=== PATIENT | male | born 1970 | race Caucasian/White ===

== ENCOUNTER 2018-05-29 19:31 | Emergency (ER) | payer OTHER ==
[~2018-05-29] VITALS: Ht 172.7 cm; Wt 77.1 kg
[~2018-05-29 19:31] MED LIST: PREDNISONE 20MG20 MG PO; PREDNISONE10 M2 PO
[2018-05-29] MEDS ORDERED: COZAAR50 M1 PO (20:22)
--- NOTE | 2018-05-29 20:22 | ED GENERAL ADULT ---
History of Present Illness General Chief Complaint: General Adult Stated Complaint: HIGH BLOOD PRESSURE Source: patient Exam Limitations: no limitations Vital Signs & Intake/Output Vital Signs & Intake/Output Vital Signs Date Time Temp Pulse Resp B/P B/P Pulse O2 O2 Flow FiO2 Mean Ox Delivery Rate 05/29 2058 69 18 143/108 95 Room Air 05/29 2049 Room Air 05/29 1933 97.6 69 18 159/87 96 Room Air Allergies Coded Allergies: NO KNOWN ALLERGIES (07/26/15) Reconcile Medications Losartan Potassium (Cozaar) 50 MG TABLET 1 TAB PO DAILY htn Prednisone 20 MG TAB 1 TAB PO AD . 3 TABS PO DAY 1-2 2 TABS PO DAY 3-5 1 TAB PO DAY 6-8 Prednisone 10 MG TABLET 1 TAB PO DAILY PRN INFLAMMATION Triage Note: PT TO TRIAGE C/O HIGH BLOOD PRESSURE AT HOME TODAY. BP IN TRIAGE 159/87. PT STATES SLIGHT BLURRED VISION EARLIER TODAY. DENIES CP/SOB. DENIES BEING ON BLOOD PRESSURE MEDICATION. Triage Nurses Notes Reviewed? yes Onset: Abrupt Duration: day(s):, constant Timing: recent history HPI: 48-year-old male comes into the emergency room for further evaluation of high blood pressure. Patient reports she's been taking his blood pressure at home and is been elevated. He denies any chest pain shortness of breath lightheaded dizziness. He reports that his eyes felt funny earlier today here and his blood pressures been fluctuating between 160 and 180s. He is on no medication. Denies any other associated symptoms. Past History Travel History Traveled to [place] past 21 day No Medical History Any Pertinent Medical History? see below for history Neurological: NONE EENT: NONE Cardiovascular: hypertension Respiratory: NONE Gastrointestinal: NONE Hepatic: NONE Renal: NONE Musculoskeletal: NONE Psychiatric: NONE Endocrine: NONE Blood Disorders: NONE Cancer(s): NONE TEACHER OF THE EMOTIONALLY DISTURBED/Reproductive: NONE Other Medical Hx: Panniculitis Surgical History Surgical History: non-contributory Psychosocial History What is your primary language Macedonian Tobacco Use: Never used ETOH Use: occasional use Family History Hx Contributory? No Review of Systems Review of Systems Constitutional: Reports: no symptoms. EENTM: Reports: no symptoms. Respiratory: Reports: no symptoms. Cardiovascular: Reports: no symptoms. GI: Reports: no symptoms. Genitourinary: Reports: no symptoms. Musculoskeletal: Reports: no symptoms. Skin: Reports: no symptoms. Neurological/Psychological: Reports: no symptoms. Hematologic/Endocrine: Reports: no symptoms. Immunologic/Allergic: Reports: no symptoms. All Other Systems: Reviewed and Negative Physical Exam Physical Exam General Appearance: well developed/nourished, no apparent distress, alert, awake Head: atraumatic, normal appearance Eyes: Bilateral: normal appearance. 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 No CVA/TIA Diagnosis: No Sepsis Present: No Sepsis Focused Exam Completed? No Progress Differential Diagnoses I considered the following diagnoses in my evaluation of the patient: Hypertensive urgency, CVA, AR, Plan of Care: 05/29/2018 9:51:39 PM Patient clinically looks well. He is asymptomatic. He has a normal exam. Started on losartan. Instructed to follow-up with his PCP. I do not feel blood work and EKG is necessary at this time. Return if any other concerns worsening symptoms. Initial ED EKG: none Departure Departure Disposition: HOME OR SELF CARE Condition: Stable Clinical Impression Primary Impression: Hypertension Referrals: Enedelia Moore (PCP/Family) Additional Instructions: Take losartan as prescribed. Follow-up with your primary care doctor. Return if any concerns worsening symptoms. Continue to monitor blood pressure at home. Please go over all results of today's visit with your primary care doctor. Contact your primary care doctor to let them know you were here in the emergency room. There may be nonspecific findings which may not be related to your visit today here in the emergency room but may require further evaluation and chronic monitoring by your primary care doctor. If you had a laceration today the chance of foreign body always remains. You should follow-up with your primary care doctor for recheck in 3-5 days for a wound check. If you had an x-ray done there is a chance that a fracture could have been missed on initial read and you should follow-up with your primary care doctor for repeat x-rays if symptoms persist. If your blood pressure was elevated here in the emergency room please have rechecked by [facility] primary care doctor within the next 48. If you were prescribed a narcotic here in the emergency room or any type of controlled substances you're not allowed to drive while taking this medication or operate any type of heavy machinery. Narcotics can make you feel lightheaded dizziness nausea and can cause constipation. You may need to supervisor prepress a stool softener. Thank you for choosing [facility] emergency room. Please return to the emergency room immediately if you have any other concerns worsening of symptoms. Departure Forms: Customer Survey General Discharge Information Prescriptions: Current Visit Scripts Losartan Potassium (Cozaar) 1 TAB PO DAILY #30 TAB Critical Care Note Critical Care Note Critical Care Time: non-applicable
[2018-05-29 20:58] VITALS: BP 143/108
== END 2018-05-29 20:49 ==
LOC: ERH 19:31
DX: I10 Essential (primary) hypertension (principal)

== ENCOUNTER 2018-07-31 17:30 | Emergency (ER) | payer OTHER ==
[~2018-07-31 17:30] MED LIST changes: +COZAAR50 M1 PO
[2018-07-31 18:56] VITALS: BP 132/94
[2018-08-03] MEDS ORDERED: IBUPROFEN800 M1 PO (18:46)
[2018-08-03] MEDS ORDERED: CYCLOBENZAPRINE10 M1 PO (18:46)
== END 2018-07-31 19:34 | disposition admitted as inpatient to this hospital (09) ==
LOC: ERH 17:30
DX: S40.852A Superficial foreign body of left upper arm, initial encounter (principal); V89.2XXA Person injured in unspecified motor-vehicle accident, traffic, initial encounter